=== PATIENT | female | born 1955 | race African-American/Black ===

== ENCOUNTER 2019-06-26 01:10 | Emergency (ER) | payer MEDICAID ==
[~2019-06-26] VITALS: Ht 175.3 cm; Wt 88.5 kg
[~2019-06-26 01:10] MED LIST: ALPRAZOLAM2 MG PO; AMLODIPINE BESY10 MG PO; ASA81BEC PO; ASPIRIN EC81 M1 PO; ATORVASTATIN CA20 MG PO; CARAFATE1 GM PO; CELEBREX 200 M200 M1 PO; GLIMEPIRIDE1 MG PO; METOPROLOL SUCC50 MG PO; MYLANTA MAXIMU355 ML PO; NORVASC 2.5 MG2.5 M1 PO; NOVOLIN 70100 UNIT/1 SUBQ; OXYBUTYNIN 5 MG5 M2 PO; PROLOPRIM100 MG PO; PROTONIX40 M2 PO; REFRESH CLASSI1 EACH OPHTHALMIC; RISPERDAL 1 MG T1 MG PO; SERTRALINE HCL50 MG PO; TRAMADOL 50 MG50 MG PO; TRIAMTERENE/HCT1 CA1 PO; VENTOLIN HFA 1818 GM INH; XANAX 0.25 MG0.25 MG PO; XARELTO15 MG PO; ZANTAC 150MG T150 M1 PO
[2019-06-26 01:39] LABS: HEMATOCRIT 37.1 % (37.0-47.0); HEMOGLOBIN 12.6 gm/dL (12.0-15.0); MCH 32.3 pg (26.0-34.0); MCHC 34.1 g/dL (28.0-37.0); MCV 94.8 fL (80.0-100.0); MPV 7.4 fl. (7.2-11.1); NUCLEATED RBCS 0 /100WBC; PLATELET COUNT* 192 thou/uL (150-400); RBC 3.91 mil/uL (4.20-5.00); RDW-CV 14.1 % (10.5-14.5); WBC 5.7 thou/uL (4.0-11.0)
[2019-06-26 01:48] LABS: CALCIUM 8.5 mg/dL (8.5-10.1); INR 1.1; POTASSIUM 3.4 mmol/L (3.5-5.1); PROTIME 11.2 Seconds (9.20-11.50)
[2019-06-26 01:52] LABS: ALBUMIN 3.3 g/dL (3.4-5.0); TOTAL BILIRUBIN 0.8 mg/dL (<0.1-1.0); TOTAL PROTEIN 7.5 g/dL (6.4-8.2)
[2019-06-26 03:27] VITALS: BP 132/68
[2019-06-26 06:53] LABS: ABSOLUTE BASOPHILS 0.1 thou/uL (0.0-0.2); ABSOLUTE EOSINOPHILS 0.1 thou/uL (0.0-0.7); ABSOLUTE LYMPHOCYTES 2.7 thou/uL (0.8-5.3); ABSOLUTE MONOCYTES 0.3 thou/uL (0.0-1.2); ABSOLUTE NEUTROPHILS 2.6 thou/uL (1.6-8.1); PLATELET ESTIMATE ADEQUATE
--- NOTE | 2019-06-26 11:16 | EKG ---
[place] [address] ELECTROCARDIOGRAM REPORT Name: SHIVANI OLEA Room: [facility]#: [id number] Admission: 06/26/19 Attend Phys: Discharge: 06/26/19 Date of : 59 Report #: [id number] THIS REPORT FOR: //name// [facility] ED Test Date: 2019-06-26 Test Time: 01:16:17 Pat Name: SHIVANI OLEA Department: Room: Gender: F Director Of Product Development: : 1955 Requested By: Shira Bills Order Number: [id number] MD: Sohan Rivera Measurements Intervals [place] Rate: 77 P: 64 WI: 229 QRS: 31 QRSD: 99 T: 49 QT: 414 QTc: 469 Interpretive Statements Sinus rhythm Prolonged WI interval Left atrial enlargement No previous ECG available for comparison Electronically Signed On 06-26-2019 11:16:23 [employer] by Sohan Rivera [email or web address] <ELECTRONICALLY SIGNED> By: Sohan Rivera MD, [facility] 06/26/19 [id number] Sohan Rivera MD, FACC /EPI
== END 2019-06-26 03:27 | disposition home or self-care (01) ==
LOC: M.ERS 01:10
PROVIDERS: Emergency Medicine
DX: G43.909 Migraine, unspecified, not intractable, without status migrainosus (principal); I10 Essential (primary) hypertension; M19.90 Unspecified osteoarthritis, unspecified site; F17.210 Nicotine dependence, cigarettes, uncomplicated; Z86.73 Personal history of transient ischemic attack (TIA), and cerebral infarction without residual deficits; Z86.19 Personal history of other infectious and parasitic diseases